=== PATIENT | male | born 1935 | race Caucasian/White ===

== ENCOUNTER 2022-04-11 12:58 | Outpatient (CLI) | payer MEDICARE, SELFPAY ==
--- NOTE | ~2022-04-11 | PE_ITS ---
EXAMINATION: PET_PETPSMAST_PT DATE: 04/11/2022 15:44 INDICATION: Malignant tumor of the prostate TECHNIQUE: 9.779 mCi of pipflufolastat F-18 (18-F-DCFPyL) was administered i.v. Low dose computed to mography (CT) images were acquired from the base of the brain to the base of the brain to the proxima l thighs for attenuation correction and anatomic localization. Positron emission tomography (PET) kathia ges were acquired in the same distribution beginning 111 minutes after injection. Images including fu sed PET/CT images were reconstructed in axial, coronal, and sagittal planes. Automated exposure contr ol technique was employed. The dose-length product was 985.80mGy-cm. COMPARISON: None FINDINGS: Head/neck: Typical pattern of symmetric physiologic increased activity in the lacrimal, parotid and submandibula r glands as well as along the mucosa of the oropharynx and nasopharynx. No pathologically enlarged ce rvical lymphadenopathy or suspicious foci of increased uptake in the visualized head or neck. Chest: 16 x 10 mm pleural-based nodule in the superior segment of the right lower lobe which is without abno rmal increased PSMA activity. Bilateral calcified pleural plaques in the dependent bilateral lower christopher ng zones and along the diaphragm which suggests prior asbestos exposure. Linear band of discoid atele ctasis/scarring in the posterior lingula. A couple small nodules oriented along the right minor fissu re, the larger measuring 6 x 3 mm most likely representing intrafissural lymph nodes which are withou t PSMA activity. Heart size is normal. Atherosclerotic coronary artery calcification and aortic valve calcification. No pericardial or pleural effusion. Thoracic aorta is normal in caliber. No pathologi julisa enlarged abdominal or pelvic lymphadenopathy. Abdomen/pelvis/proximal thighs: Physiologic renal accumulation and excretion of activity in the kidneys, bladder and along portions o f ureters. Normal degree and slightly heterogenous pattern of increased uptake throughout the liver a nd spleen without radiologic correlate or dominant PSMA avid lesion. The gallbladder, pancreas and bi lateral adrenal glands are normal. Moderate uptake scattered throughout the bowels with typical duode nal predominance and without radiologic correlate, also likely physiologic. There is moderate colonic diverticulosis with a sigmoid predominance. There is no adjacent inflammatory change to suggest div erticulitis. Normal appendix. Small fat-containing bilateral inguinal hernias. Prostatomegaly measuri ng 5.5 x 3.7 cm. No other abnormal foci of increased uptake or pathologically enlarged lymphadenopath y in the abdomen, pelvis or proximal thighs. Musculoskeletal: Severe lower cervical, mild thoracic and moderate lumbar spondylosis. No suspicious lytic, blastic or PSMA avid bone lesions identified. IMPRESSION: 1. Prostatomegaly. No abnormal PSMA abdomen lesions identified to suggest metastatic disease. 2. Indeterminate 1.6 x 1.0 cm pleural-based nodule in the right lower lobe. Recommend correlation wit h any prior outside imaging. Differential would include infectious/inflammatory nodules, primary simon gnancy or round atelectasis related to bilateral calcified pleural plaques suggestive of peristalsis exposure. Assessment of the local architectural is limited due to motion artifact. If prior outside i maging is unavailable would recommend dedicated chest CT at full inspiration. Reviewed, dictated and finalized at location A. IMPRESSION: 1. Prostatomegaly. No abnormal PSMA abdomen lesions identified to suggest metas tatic disease. 2. Indeterminate 1.6 x 1.0 cm pleural-based nodule in the right lower lobe. Rec ommend correlation with any prior outside imaging. Differential would include i
== END 2022-04-11 12:59 | disposition home or self-care (01) ==
PROVIDERS: PCP Internal Medicine; Visit Provider Urology
DX: Z03.89 Encounter for observation for other suspected diseases and conditions ruled out (principal); C61 Malignant neoplasm of prostate
CPT/HCPCS: 78815; A9595

== ENCOUNTER 2023-06-13 12:06 | Outpatient (CLI) | payer MEDICARE, SELFPAY ==
--- NOTE | 2023-06-13 14:30 | NEURO_ITS ---
Impression: # Complains of numbness of hands, right more than left. # Severe Carpal Tunnel Syndrome, right more than left. # No ulnar neuropathy. # Needle/EMG mildly neurogenic in bilateral APB. Nerve Conduction Studies Anti Sensory Summary Table Stim Site NR Peak (ms) P-T Amp (?V) Site1 Site2 Delta-P (ms) Dist (cm) Leonardo (m/s) Left Median Anti Sensory (2-3nd Digit) Wrist 4.4 30.7 Wrist 2-3nd Digit 4.4 14.0 32 Wrist 4.7 14.5 Wrist 2-3nd Digit 4.4 14.0 32 Right Median Anti Sensory (2-3nd Digit) Wrist 8.4 29.0 Wrist 2-3nd Digit 8.4 14.0 17 Wrist 7.5 12.1 Wrist 2-3nd Digit 8.4 14.0 17 Left Radial Anti Sensory (Base 1st Digit) Wrist 2.4 24.3 Wrist Base 1st Digit 2.4 0.0 Right Radial Anti Sensory (Base 1st Digit) Wrist 2.3 18.8 Wrist Base 1st Digit 2.3 0.0 Left Ulnar Anti Sensory (5th Digit) Wrist 3.3 48.6 Wrist 5th Digit 3.3 14.0 42 Right Ulnar Anti Sensory (5th Digit) Wrist 2.8 36.3 Wrist 5th Digit 2.8 14.0 50 Motor Summary Table Stim Site NR Onset (ms) O-P Amp (mV) Site1 Site2 Delta-0 (ms) Dist (cm) Leonardo (m/s) Left Median Motor (Abd Poll Brev) Wrist 5.1 1.1 Elbow Wrist 6.1 32.0 52 Elbow 11.2 0.9 Right Median Motor (Abd Poll Brev) Wrist 9.0 2.3 Elbow Wrist 6.5 34.0 52 Elbow 15.5 1.4 Left Ulnar Motor (Abd Dig Minimi) Wrist 2.7 3.6 A Elbow Wrist 5.9 33.0 56 A Elbow 8.6 3.2 Right Ulnar Motor (Abd Dig Minimi) Wrist 2.3 4.4 A Elbow Wrist 5.7 33.0 58 A Elbow 8.0 3.2 F Wave Studies NR F-Lat (ms) L-R F-Lat (ms) Left Median (Mrkrs) (Abd Poll Brev) 32.89 6.26 Right Median (Mrkrs) (Abd Poll Brev) 39.14 6.26 Left Ulnar (Mrkrs) (Abd Dig Min) 32.39 1.06 Right Ulnar (Mrkrs) (Abd Dig Min) 31.33 1.06 EMG Side Muscle Nerve Root Ins Act Fibs Amp Dur Recrt Comment Right 1stDorInt Ulnar C8-T1 Nml Nml Nml Nml Nml Right Ext Indicis Radial (Post Int) C7-8 Nml Nml Nml Nml Nml Right Ext Digitorum Radial (Post Int) C7-8 Nml Nml Nml Nml Nml Right BrachioRad Radial C5-6 Nml Nml Nml Nml Nml Right PronatorTeres Median C6-7 Nml Nml Nml Nml Nml Right Abd Poll Brev Median C8-T1 Nml Nml Nml >12ms Reduced Left 1stDorInt Ulnar C8-T1 Nml Nml Nml Nml Nml Left Ext Indicis Radial (Post Int) C7-8 Nml Nml Nml Nml Nml Left Ext Digitorum Radial (Post Int) C7-8 Nml Nml Nml Nml Nml Left BrachioRad Radial C5-6 Nml Nml Nml Nml Nml Left PronatorTeres Median C6-7 Nml Nml Nml Nml Nml Left Abd Poll Brev Median C8-T1 Nml Nml Nml >12ms Reduced MTDD
== END 2023-06-13 12:07 | disposition home or self-care (01) ==
LOC: ANHNEURO 12:07
PROVIDERS: PCP Internal Medicine; Visit Provider Internal Medicine
DX: R20.0 Anesthesia of skin (principal); G56.03 Carpal tunnel syndrome, bilateral upper limbs
CPT/HCPCS: 95886; 95911

== ENCOUNTER 2023-07-31 01:11 | Day surgery (SDC) | payer MEDICARE, SELFPAY ==
[2023-07-23 15:06] VITALS: BMI 28.5
--- NOTE | 2023-07-23 15:21 | PC.NURSE ---
Report to the Outpatient Waiting Room, entrance under the green pavilion located off [facility], at time ___929____ on date __07/31/23 . Planned Procedure Time: ___1230 . Time changes happen often and if your time is changed the preop area will call you the afternoon before. - You and your visitor will be asked to self-screen and do not enter if you have any COVID symptoms. - A mask is optional within the hospital at this time. Patients may have clear liquids (water, carbonated beverages, clear teas, apple juice) until 3 hours prior to surgery (0930 AM) with a maximum of 20 ounces. - No food from midnight until time of surgery - Infants may have breast milk until 4 hours before surgery, infant formula 6 hours prior to surgery. - Children will be allowed to drink immediately following surgery. If applicable, please bring a bottle or sippy cup to assist with drinking. Juice, water, soda, and popsicles are readily available. For infants on formula, please bring formula the day of surgery. Pacifiers are allowed. Take the following medications with a SIP of water the morning of surgery: NONE DO NOT STOP ANY OF YOUR OTHER PRESCRIPTION MEDICATIONS PRIOR TO SURGERY ?EXCEPT THE FOLLOWING Medications to discontinue per physician NONE Date to take last dose Please no make-up, nail ukrainian, hairspray, perfume, deodorant, or body powder the day of surgery. No jewelry (including any body piercings) or valuables the day of surgery, leave them at home. Please take a shower or bath the night before, or the morning of, surgery with an antibacterial soap. Wear comfortable, loose fitting clothing. Children are encouraged to wear pajamas. - Jewelry must be removed prior to entering the operating room. Rings and piercings that are not removed may be cut off. - The hospital will not accept responsibility for valuables. - Please leave all valuables, including medications, at home the day of surgery. If you are going home after surgery, a licensed commercial collections driver must drive you home. - NO public transportation without another adult if you receive anesthesia. - We recommend that an adult stay with you for 24 hours following discharge. - We also recommend that you do not drive, make important decision, drink alcoholic beverages, or take any drugs that were not prescribed by your health care provider for at least 24 hours after your discharge time. For Pediatric surgeries, we recommend two adults accompany the child home. Follow any additional instructions given to you from your surgeon. If you or anyone in your household have experienced Covid symptoms in the past week, please notify your surgeon or the nurse liaison at the phone number below for possible testing. Telephone instructions given to ____PT and asked if any additional questions and then verbalized understanding. Patient advised to call surgeon office or pre surgery nurse liaison [phone] if any additional questions.
--- NOTE | 2023-07-26 09:17 | P.HP_ITS ---
H&P: HPI History of Present Illness Date/Time: 07/26/23 09:17 Chief Complaint: Right carpal tunnel. Narrative: Patient is as had numbness and tingling in the right hand for years now it is getting progressively worse. She he has failed conservative treatment splinting anti-inflammatory medication and time. His EMG shows carpal tunnel syndrome. Review of Systems Musculoskeletal: Musculoskeletal: Reports arthralgias and Reports joint swelling PMFSH Past Medical History Medical History (Updated 07/02/23 @ 08:22 by Freddie Cheema MD) Hyperlipidemia Prostate cancer Surgical History Surgical History (Updated 07/02/23 @ 08:15 by Ines Wilson [facility]) History of appendectomy Family History Family History (Updated 07/02/23 @ 08:15 by Ines Wilson CMA) Father Diabetes mellitus Heart disease Social History Social History (Updated 07/02/23 @ 08:17 by Ines Wilson CMA) Smoking status: Never smoker Second hand tobacco smoke exposure: No Alcohol intake: never Substance use: never Substance use type: does not use Lack of Transportation: No Lack of Food: Never True Current Housing: I Have Housing Concerned About Future Housing: No Difficulty Paying Gas/Electric Bills: No Difficulty Paying for Meds: No Currently Unemployed: No Education: High School Diploma/GED Difficulty w/ Childcare or Family Care: No Living arrangements: with family Occupation/Education: retired Spiritual care concerns: No Meds Home Medications and Allergies Home Medications Medication Instructions Recorded Confirmed Type leuprolide acetate (6 month) 45 mg 45 mg subcut [id number] 07/02/23 07/23/23 History (6 month) subcutaneous syringe ([employer]) simvastatin 40 mg tablet 40 mg PO DAILY 07/02/23 07/23/23 History tamsulosin 0.4 mg capsule 0.4 mg PO DAILY 07/02/23 07/23/23 History Allergies Allergy/AdvReac Type Severity Reaction Status Date / Time No Known Allergies Allergy Verified 07/23/23 15:06 Exam Narrative: Hip patient is wasting of the thumb the thenar musculature. He has got a it markedly increased 2 point discrimination. He has numbness in the median nerve distribution. Eyes: General: appearance normal, both eyes and all related structures Neck: Neck: supple Resp: Effort & Inspection: normal respiratory effort Cardio: Rate: regular rate Rhythm: regular rhythm Assessment and Plan Assessment and plan (1) Carpal tunnel syndrome on both sides: Code(s): G56.03 - Carpal tunnel syndrome, bilateral upper limbs Status: Acute Assessment and Plan: Patient presents carpal tunnel right to left. He would like to have his right relief 1 release today. He has failed conservative treatment. We he is still discussed surgery with him risks benefits limitations and alternatives in detail. Because of his advanced age and the severe changes on his EMG, I told him there are many people do not get full function back. He understands this will proceed per his request.
--- NOTE | 2023-07-31 06:51 | WPDHPUPDATE1 ---
History and Physical Update Update Date/Time: 07/31/23 06:51 History and Physical has been reviewed, including an updated exam of the patient. There are NO changes in the patient's condition. Risks, benefits, and alternatives have been discussed and questions answered. Patient agrees to proceed with procedure.
--- NOTE | 2023-07-31 08:40 | WPDANESEPPF ---
Anes - Initial Pre Proc Eval Procedure: Operation Date: 07/31/23 12:30 Proposed Procedures p Right Carpal Tunnel Release - Freddie Cheema MD Date/Time: 07/31/23 08:40 Surgeon: Freddie Cheema MD Pre Op Diagnosis: Right Carpal Tunnel Synd Patient Data Age: 88 Gender: M Height: 1.8 m Weight: 92.72 kg Allergies Allergy/AdvReac Type Severity Reaction Status Date / Time No Known Allergies Allergy Verified 07/31/23 09:58 Home Medications Medication Instructions Recorded Confirmed Type leuprolide acetate (6 month) 45 mg 45 mg subcut [id number] 07/02/23 07/23/23 History (6 month) subcutaneous syringe ([employer]) simvastatin 40 mg tablet 40 mg PO DAILY 07/02/23 07/23/23 History tamsulosin 0.4 mg capsule 0.4 mg PO DAILY 07/02/23 07/23/23 History Patient hx anesthesia problems: none Family hx anesthesia problems: none Results Review: All pre-operative results and documents have been reviewed as part of the pre-operative evaluation. [facility] Past Medical History Medical History (Updated 07/02/23 @ 08:22 by Freddie Cheema MD) Hyperlipidemia Prostate cancer Surgical History Surgical History (Updated 07/02/23 @ 08:15 by Ines Wilson CMA) History of appendectomy Family History Family History (Updated 07/02/23 @ 08:15 by Ines Wilson CMA) Father Diabetes mellitus Heart disease Social History Social History (Updated 07/02/23 @ 08:17 by Ines Wilson CMA) Smoking status: Never smoker Second hand tobacco smoke exposure: No Alcohol intake: never Substance use: never Substance use type: does not use Lack of Transportation: No Lack of Food: Never True Current Housing: I Have Housing Concerned About Future Housing: No Difficulty Paying Gas/Electric Bills: No Difficulty Paying for Meds: No Currently Unemployed: No Education: High School Diploma/GED Difficulty w/ Childcare or Family Care: No Living arrangements: with family Occupation/Education: retired Spiritual care concerns: No Anes - Eval Final PreProcedure Day of Procedure 07/31/23 08:40 Patient weight: overweight Heart: regular rate and rhythm Lungs: clear to auscultation Airway: Mallampati scale class II Neurological: alert and oriented Last oral intake: >/= 8 hours ASA classification: III Emergent: no Anesthetic plan: proceed Anesthesia type and monitoring: general GIVS and standard monitoring Results Review: All pre-operative results and documents have been reviewed as part of the pre-operative evaluation. Informed Consent: The patient's anesthetic plan and its attendant risks and benefits were discussed with the patient/family/POA. Questions were solicited and answers provided to the satisfaction of the patient/family/POA.
[2023-07-31 10:06] VITALS: BP 137/66; PULSE 87; RESP 16; TEMP 36.6; O2SAT 98
[2023-07-31] MEDS: ACETAMINOPHEN 500 MG TABLET 1000 MG PO (11:15)
[2023-07-31] MEDS: LACTATED RINGERS 1,000 ML 30 ML IV CONT (11:15)
[2023-07-31] MEDS: KETOROLAC 15 MG/ML VIAL (*BKC) IV PUSH (11:18)
--- NOTE | 2023-07-31 12:40 | SUR.PREOP ---
Patient and upset about wait time. They believe they were told surgery was to be at 1030. I told them when they got here they were early and the OR was running 1/2 behind. I didn't realize at that time just how early they thought he was going to surgery. Attempted to help them understand but they are firm in believing they were told he would go to surgery at 1030 ( his arrival time).
[2023-07-31] MEDS: ceFAZolin 2 GM/D5W 50 ML 2 GM/50 ML BAG IVPB (13:23)
--- NOTE | 2023-07-31 13:52 | W.PM.PROC2 ---
Procedure Note - Detailed Date of Procedure 07/31/23 Pre-op Diagnosis Right Carpal Tunnel Syndrome Post-op Diagnosis Same Procedure Performed RIGHT carpal tunnel release Surgeon Freddie Cheema MD Anesthesia MAC Description of Procedure An anestheitc was administered. After sterile prep and drape, I injected the area of intended incision with 10ml of 1% lidocaine. A longitudinal incision was made in line with the ulnar boarder of the third finger. Dissection carried down to the fascia, the fascia split and the carpal ligament identified. The carpal ligament was released and the flexor retinaculum was released as well. The nerve was noted to be red purple in color and in continuity. The wound was irrigated, hemostasis was obtained and closed with 3-0 prolene. Estimated Blood Loss 2 Drains No Packing No Pathology None sent Complications No immediate complications Condition Stable Disposition Same day [facility] Billing Surgery - Charge Forward: Surgery Billing (RIGHT CARPAL TUNNEL [id number])
[2023-07-31 13:57] VITALS: BP 109/53; PULSE 68; RESP 16; O2SAT 93
[2023-07-31 14:25] VITALS: BP 148/68; PULSE 63
== END 2023-07-31 14:47 | disposition home or self-care (01) ==
PROVIDERS: PCP Internal Medicine; Visit Provider Orthopaedic Surgery
PROC: (CPT 64721; principal; 2023-07-31 12:30)
DX: G56.01 Carpal tunnel syndrome, right upper limb (principal); E78.5 Hyperlipidemia, unspecified; Z85.46 Personal history of malignant neoplasm of prostate
CPT/HCPCS: 64721; A9270; J0690; J1885; J2704; J7120

== ENCOUNTER 2023-09-06 10:20 | Outpatient (CLI) | payer MEDICARE, SELFPAY ==
--- NOTE | 2023-09-06 10:33 | ECG_ITS ---
Measurements Intervals [place] Rate: 62 P: 64 GA: 245 QRS: 16 QRSD: 106 T: 66 QT: 381 QTc: 388 Interpretive Statements SINUS RHYTHM WITH FIRST DEGREE AV BLOCK NO PREVIOUS ECG AVAILABLE FOR COMPARISON Electronically Signed On 09-06-2023 14:04:33 CAGE MANAGER by Nicanor Booker M.D.
== END 2023-09-06 10:21 | disposition home or self-care (01) ==
LOC: ANHSURGERY 10:25
PROVIDERS: PCP Internal Medicine; Visit Provider Orthopaedic Surgery
DX: Z01.818 Encounter for other preprocedural examination (principal); I44.0 Atrioventricular block, first degree; E78.00 Pure hypercholesterolemia, unspecified
CPT/HCPCS: 93005

== ENCOUNTER 2023-09-10 01:27 | Day surgery (SDC) | payer MEDICARE, SELFPAY ==
--- NOTE | 2023-08-27 15:27 | PC.NURSE ---
Report to the Outpatient Waiting Room, entrance under the green pavilion located off [facility], at time __0600 on date _09/10/23 . Planned Procedure Time: _0730 . Time changes happen often and if your time is changed the preop area will call you the afternoon before. - You and your visitor will be asked to self-screen and do not enter if you have any COVID symptoms. - A mask is optional within the hospital at this time. Patients may have clear liquids (water, carbonated beverages, clear teas, apple juice) until 3 hours prior to surgery( 4:30 AM ) with a maximum of 20 ounces. - No food from midnight until time of surgery - Infants may have breast milk until 4 hours before surgery, infant formula 6 hours prior to surgery. - Children will be allowed to drink immediately following surgery. If applicable, please bring a bottle or sippy cup to assist with drinking. Juice, water, soda, and popsicles are readily available. For infants on formula, please bring formula the day of surgery. Pacifiers are allowed. Take the following medications with a SIP of water the morning of surgery: _NONE DO NOT STOP ANY OF YOUR OTHER PRESCRIPTION MEDICATIONS PRIOR TO SURGERY ?EXCEPT THE FOLLOWING Medications to discontinue per physician ALL VITAMINS AND SUPPLEMENTS 3 DAYS PRE OP .LAST DOSE 09/06/23 Please no make-up, nail turkish, hairspray, perfume, deodorant, or body powder the day of surgery. No jewelry (including any body piercings) or valuables the day of surgery, leave them at home. Please take a shower or bath the night before, or the morning of, surgery with an antibacterial soap. Wear comfortable, loose fitting clothing. Children are encouraged to wear pajamas. - Jewelry must be removed prior to entering the operating room. Rings and piercings that are not removed may be cut off. - The hospital will not accept responsibility for valuables. - Please leave all valuables, including medications, at home the day of surgery. If you are going home after surgery, a licensed otr tanker truck driver must drive you home. - NO public transportation without another adult if you receive anesthesia. - We recommend that an adult stay with you for 24 hours following discharge. - We also recommend that you do not drive, make important decision, drink alcoholic beverages, or take any drugs that were not prescribed by your health care provider for at least 24 hours after your discharge time. Follow any additional instructions given to you from your surgeon. If you or anyone in your household have experienced Covid symptoms in the past week, please notify your surgeon or the nurse liaison at the phone number below for possible testing. Telephone instructions given to _PATIENT and asked if any additional questions and then verbalized understanding. Patient advised to call surgeon office or pre surgery nurse liaison [phone] if any additional questions.
[2023-08-27 15:34] VITALS: BMI 27.8
--- NOTE | 2023-09-06 07:26 | PM.IMHP ---
H&P: HPI History of Present Illness Date/Time: 09/06/23 07:26 Chief Complaint: Numbness and tingling right hand from carpal tunnel syndrome. Narrative: Patient presents for carpal tunnel release right. Review of Systems Musculoskeletal: Musculoskeletal: Reports arthralgias and Reports joint swelling PMF Past Medical History Medical History Hyperlipidemia Prostate cancer Surgical History Surgical History (Updated 08/14/23 @ 13:52 by Ines Wilson CMA) History of appendectomy History of carpal tunnel surgery of right wrist 07/31/23 Family History Family History Father Diabetes mellitus Heart disease Social History Social History Smoking status: Never smoker Second hand tobacco smoke exposure: No Alcohol intake: never Substance use: never Substance use type: does not use Do You Feel Safe in your Home?: Yes Lack of Transportation: No Lack of Food: Never True Current Housing: I Have Housing Concerned About Future Housing: No Difficulty Paying Gas/Electric Bills: No Difficulty Paying for Meds: No Currently Unemployed: No Education: High School Diploma/GED Difficulty w/ Childcare or Family Care: No Living arrangements: with family Occupation/Education: retired Spiritual care concerns: No Meds Home Medications and Allergies Home Medications Medication Instructions Recorded Confirmed Type leuprolide acetate (6 month) 45 mg 45 mg subcut [id number] 07/02/23 08/27/23 History (6 month) subcutaneous syringe ([place]) simvastatin 40 mg tablet 40 mg PO DAILY 07/02/23 08/27/23 History tamsulosin 0.4 mg capsule 0.4 mg PO DAILY 07/02/23 08/27/23 History cholecalciferol (vitamin D3) 25 25 mcg PO DAILY 08/27/23 08/27/23 History mcg (1,000 unit) tablet cyanocobalamin (vitamin B-12) 500 500 mcg PO DAILY 08/27/23 08/27/23 History mcg tablet omega-3 fatty acids 3,000 mg PO DAILY DAILY 08/27/23 08/27/23 History pyridoxine (vitamin B6) 100 mg 100 mg PO DAILY 08/27/23 08/27/23 History tablet Allergies Allergy/AdvReac Type Severity Reaction Status Date / Time naproxen AdvReac Dizziness Verified 08/27/23 15:13 Exam Narrative: Patient is numbness and tingling right hand. He has a positive Phalen's and carpal tunnel compression test. He has increased 2 point discrimination. Is difficulty picking up coins. Eyes: General: appearance normal, both eyes and all related structures Neck: Neck: supple Resp: Effort & Inspection: normal respiratory effort Cardio: Rate: regular rate Rhythm: regular rhythm Assessment and Plan Assessment and plan (1) Carpal tunnel syndrome on both sides: Code(s): G56.03 - Carpal tunnel syndrome, bilateral upper limbs Status: Acute Assessment and Plan: Patient has carpal tunnel syndrome right left hand. He would like to begin with the right hand. He has failed conservative treatment like to proceed with release. I discussed risks benefits limitations and alternatives in detail. He understands he may not get complete sensation back. Will proceed per his request. For right carpal tunnel syndrome release
--- NOTE | 2023-09-10 06:48 | WPDHPUPDATE1 ---
History and Physical Update Update Date/Time: 09/10/23 06:48 History and Physical has been reviewed, including an updated exam of the patient. There are NO changes in the patient's condition. Risks, benefits, and alternatives have been discussed and questions answered. Patient agrees to proceed with procedure.
[2023-09-10] MEDS: ACETAMINOPHEN 500 MG TABLET 1000 MG PO (08:21)
[2023-09-10 08:25] VITALS: BP 135/59; PULSE 74; RESP 16; TEMP 36.2; O2SAT 97
--- NOTE | 2023-09-10 08:53 | WPDANESEPPF ---
Anes - Initial Pre Proc Eval Procedure: Operation Date: 09/10/23 10:00 Proposed Procedures p Left Carpal Tunnel Release - Freddie Cheema MD Date/Time: 09/10/23 08:53 Surgeon: Freddie Cheema MD Pre Op Diagnosis: left carpal tunnel syndrome Patient Data Age: 88 Gender: M Height: 1.8 m Weight: 90.75 kg Last Vital Signs Temp 36.2 C L 09/10/23 08:25 Pulse 74 09/10/23 08:25 Resp 16 09/10/23 08:25 BP 135/59 L 09/10/23 08:25 Pulse Ox 97 09/10/23 08:25 O2 Del Method Room Air 09/10/23 08:25 Allergies Allergy/AdvReac Type Severity Reaction Status Date / Time naproxen AdvReac Dizziness Verified 08/27/23 15:13 Home Medications Medication Instructions Recorded Confirmed Type leuprolide acetate (6 month) 45 mg 45 mg subcut [id number] 07/02/23 09/10/23 History (6 month) subcutaneous syringe ([employer]) simvastatin 40 mg tablet 40 mg PO DAILY 07/02/23 09/10/23 History tamsulosin 0.4 mg capsule 0.4 mg PO DAILY 07/02/23 09/10/23 History cholecalciferol (vitamin D3) 25 25 mcg PO DAILY 08/27/23 09/10/23 History mcg (1,000 unit) tablet cyanocobalamin (vitamin B-12) 500 500 mcg PO DAILY 08/27/23 09/10/23 History mcg tablet omega-3 fatty acids 3,000 mg PO DAILY DAILY 08/27/23 09/10/23 History pyridoxine (vitamin B6) 100 mg 100 mg PO DAILY 08/27/23 09/10/23 History tablet Patient hx anesthesia problems: none Family hx anesthesia problems: none Results Review: All pre-operative results and documents have been reviewed as part of the pre-operative evaluation. [facility] Past Medical History Medical History Hyperlipidemia Prostate cancer Surgical History Surgical History History of appendectomy History of carpal tunnel surgery of right wrist 07/31/23 Family History Family History Father Diabetes mellitus Heart disease Social History Social History Smoking status: Never smoker Second hand tobacco smoke exposure: No Alcohol intake: never Substance use: never Substance use type: does not use Do You Feel Safe in your Home?: Yes Lack of Transportation: No Lack of Food: Never True Current Housing: I Have Housing Concerned About Future Housing: No Difficulty Paying Gas/Electric Bills: No Difficulty Paying for Meds: No Currently Unemployed: No Education: High School Diploma/GED Difficulty w/ Childcare or Family Care: No Living arrangements: with family Occupation/Education: retired Spiritual care concerns: No Anes - Eval Final PreProcedure Day of Procedure 09/10/23 08:53 Patient weight: overweight Heart: regular rate and rhythm Lungs: clear to auscultation Airway: Mallampati scale class II Neurological: alert and oriented Last oral intake: >/= 8 hours ASA classification: III Emergent: no Anesthetic plan: proceed Anesthesia type and monitoring: general GIVS and standard monitoring Results Review: All pre-operative results and documents have been reviewed as part of the pre-operative evaluation. Informed Consent: The patient's anesthetic plan and its attendant risks and benefits were discussed with the patient/family/POA. Questions were solicited and answers provided to the satisfaction of the patient/family/POA.
[2023-09-10] MEDS: LACTATED RINGERS 1,000 ML 30 ML IV CONT (10:00)
[2023-09-10] MEDS: ceFAZolin 2 GM/D5W 50 ML 2 GM/50 ML BAG IVPB (10:04)
[2023-09-10] MEDS: LIDOCAINE HCL 1% LOCAL INJ 20 ML VIAL 10 ML INFILTRATE (10:22)
--- NOTE | 2023-09-10 10:25 | P.OP_ITS ---
Procedure Note - Detailed Date of Procedure 09/10/23 Pre-op Diagnosis LEFT carpal tunnel syndrome Post-op Diagnosis Same Procedure Performed LEFT carpal tunnel release Surgeon Freddie Cheema MD Anesthesia MAC Description of Procedure A general anesthetic was administered. After sterile prep and drape, I injected the area of intended incision with 10ml of 1% lidocaine. A longitudinal incision was made in line with the ulnar boarder of the third finger. Dissection carried down to the fascia, the fascia split and the carpal ligament identified. The carpal ligament was released and the flexor retinaculum was released as well. The nerve was noted to be red purple in color and in continuity. The wound was irrigated, hemostasis was obtained and closed with 3- 0 prolene. Estimated Blood Loss 5 Drains No Packing No Pathology None sent Complications No immediate complications Condition Stable Disposition Same day [facility] Billing Surgery - Charge Forward: Surgery Billing (31541 Carpal Tunnel Left)
[2023-09-10 10:35] VITALS: BP 93/43; PULSE 55; RESP 12; O2SAT 95
[2023-09-10 11:05] VITALS: BP 136/51; PULSE 53; RESP 12; O2SAT 95
== END 2023-09-10 11:20 | disposition home or self-care (01) ==
PROVIDERS: PCP Internal Medicine; Visit Provider Orthopaedic Surgery
PROC: (CPT 64721; principal; 2023-09-10 10:00)
DX: G56.02 Carpal tunnel syndrome, left upper limb (principal); E78.5 Hyperlipidemia, unspecified; Z98.890 Other specified postprocedural states; Z85.46 Personal history of malignant neoplasm of prostate; Z82.49 Family history of ischemic heart disease and other diseases of the circulatory system
CPT/HCPCS: 64721; 93005; A9270; J0690; J1100; J2405; J2704; J3010; J7120; L3908

== ENCOUNTER 2024-02-07 21:12 | Observation (INO) | payer MEDICARE, SELFPAY ==
--- NOTE | ~2024-02-07 | MR_ITS ---
EXAMINATION: MR MRCP wo/w con/w 3D wo ind DATE: 02/08/2024 13:23 INDICATION: Acute cholecystitis. TECHNIQUE: Magnetic resonance imaging (MRI) of the abdomen was performed without and with 18 mL Multi Haramn intravenous contrast. Sequences included coronal T2-weighted FS FSE, coronal T2-weighted FSE, a xial T1-weighted LAVA, coronal FS FIESTA, axial dual-echo T1-weighted SPGR, coronal lava-FLEX, sagitt al T2-weighted FSE, axial T2-weighted FSE, and axial DWI. Thick-slab T2-weighted FSE images were obta ined for magnetic resonance cholangiopancreatography (MRCP). Maximum intensity projection 3-D reconst ructions of the volumetric data were created by the technologist. Postcontrast sequences included cor onal LAVA-flex and time course of axial T1-weighted LAVA. COMPARISON: CT abdomen and pelvis 02/06/2024 FINDINGS: ABDOMEN MRI: There is diffuse hepatic steatosis. The gallbladder is distended and contains gallstones . Gallbladder wall thickening is noted. The pancreas, spleen, adrenal glands, and right kidney are no rmal. There is a 6 mm cyst in left kidney. There is a small sliding hiatal hernia. There are no dilat ed loops of bowel. There are no pathologically enlarged lymph nodes. There is no free intraperitoneal fluid. ABDOMEN MRCP: The common duct is normal and measures 6 mm. No choledocholithiasis. IMPRESSION: 1. Acute cholecystitis. Reviewed, dictated and finalized at location A. IMPRESSION: 1. Acute cholecystitis.
--- NOTE | ~2024-02-07 | XR_ITS ---
Clinical Indication: Crackles PA and lateral views of the chest: Comparison: None Findings: There is linear scarring or atelectasis at the right lung base. Possible minimal central co ngestive change. Lungs are otherwise clear. Cardiomediastinal silhouette is within normal limits. Leo moises and soft tissues are unremarkable. Impression: Linear scarring or atelectasis right lung base. Possible minimal central congestive change. Reviewed, dictated and finalized at location . Impression: Linear scarring or atelectasis right lung base. Possible minimal central congestive change.
[2024-02-07 18:30] VITALS: BMI 27.8
--- NOTE | 2024-02-07 18:46 | PC.NURSE ---
This patient, Yves Payton, was admitted to [facility] Surg Room 313-01. Patient/family oriented to hospital policies and general routines including ID bracelet, bed and alarms, visiting hours, pain management, procedures, bathroom and other care routines, personal items, smoking policy, room service/diet, and visiting hours. Information on how to activate the Rapid Response Team has been discussed. Patient/Family are encouraged to report perceived risks to care and to ask questions if they do not understand what they are told or what they should do.
--- NOTE | 2024-02-07 19:37 | PM.IMHP ---
H&P: HPI History of Present Illness Date/Time: 02/07/24 19:37 Chief Complaint: Abdominal Pain Narrative: 88 y/o M presents here with abdominal pain with PMH of HLD, chronic back pain, skin cancer (s/p excision), eczema, and prostate cancer (s/p radiation and eligard [id number]). The patient presents here from [place] for abdominal pain. Reports onset of acute diffuse abdominal pain yesterday postprandial after a barbecue around 2 pm. He describes the pain as diffuse initially more so right sided later in course, nonradiating, constant, no aggravating factors, and alleviated by pain medication. Pain accompanied by nausea, fever (102F yesterday), lack of appetite, and loose stools. Has had 3 BMs in the last 24 hours - one normal in consistency and two that were loose. Denies blood or dark tarry stools. Denies associated vomiting, chills, body aches. Initially sought care at [place] in [place]. There he was given Zosyn, pain medication, Protonix, and IV fluids. Transferred here to [place] for General Surgery consultation and possible cholecystectomy. VS upon transfer to [place]: ED workup showed: WBC 13.7, hemoglobin 13.4, sodium 134, glucose 117, creatinine 1.14 and GFR >60, ALT 428, AST 620, total bilirubin 5.4, and lipase 211. UA not consistent with UTI. TSH 1.4. CT of the abdomen/pelvis spacious for acute cholecystitis. Abdominal ultrasound showed cholelithiasis and kenney cholecystic free fluid, negative sonographic Blair sign. 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 Carpal tunnel syndrome on both sides Chronic back pain Eczema Hyperlipidemia Prostate cancer s/p radiation and [id number] Eligard SCC (squamous cell carcinoma) s/p excision Surgical History Surgical History History of appendectomy History of bilateral cataract extraction History of carpal tunnel surgery of left wrist 09/10/23 History of carpal tunnel surgery of right wrist 07/31/23 History of left inguinal hernia repair Family History Family History Father Diabetes mellitus Heart disease Social History Social History Smoking status: Never smoker Second hand tobacco smoke exposure: No Alcohol intake: never Substance use: never Substance use type: does not use Do You Feel Safe in your Home?: Yes Lack of Transportation: No Lack of Food: Never True Current Housing: I Have Housing Concerned About Future Housing: No Difficulty Paying Gas/Electric Bills: No Difficulty Paying for Meds: No Currently Unemployed: No Education: High School Diploma/GED Difficulty w/ Childcare or Family Care: No Living arrangements: with family Occupation/Education: retired Spiritual care concerns: No Meds Home Medications and Allergies Home Medications Medication Instructions Recorded Confirmed Type simvastatin 40 mg tablet 40 mg PO DAILY 07/02/23 02/07/24 History tamsulosin 0.4 mg capsule 0.4 mg PO DAILY 07/02/23 02/07/24 History omega-3 fatty acids 3,000 mg PO DAILY DAILY 08/27/23 02/07/24 History multivit,Ca,min-iron 8 mg-folic 1 tablet PO DAILY 02/07/24 02/07/24 History acid 200 mcg-lycopene 600 mcg tablet ([employer]) Allergies Allergy/AdvReac Type Severity Reaction Status Date / Time naproxen AdvReac Dizziness Verified 09/25/23 09:37 Exam Narrative: Const: General: comfortable and no acute distress Other: , male, nontoxic appearance HENMT: Face/Nose/Sinus: Normal nares present Mouth: Yes moist mucous membranes Eyes: General: appearance normal, both eyes and all r
[2024-02-07 22:00] VITALS: BP 125/47; PULSE 70; RESP 15; TEMP 36.2; O2SAT 93
[2024-02-07] MEDS: SODIUM CHLORIDE 0.9% IV 1,000 ML 100 ML IV CONT (22:01)
[2024-02-07] MEDS: ACETAMINOPHEN 325 MG TABLET 650 MG PO (22:50)
[2024-02-07] MEDS: metroNIDAZOLE 500 MG/ISO 100ML 500 MG/100 ML BAG 100 MG IVPB (22:51)
[2024-02-08] MEDS: cefTRIAXone 2 GM/NS 100 ML 2 GM/100 ML BAG IVPB ×2 (00:14→22:43)
[2024-02-08] MEDS: metroNIDAZOLE 500 MG/ISO 100ML 500 MG/100 ML BAG 100 MG IVPB ×3 (05:24→20:38)
[2024-02-08 06:00] VITALS: BP 120/65; PULSE 58; RESP 15; TEMP 36.1; O2SAT 93
[2024-02-08 07:03] LABS: Basophils Percent Auto 0.4 % (0.2-1.2); Eosinophils Absolute Auto 0.4 K/mm3 (0-0.3); Eosinophils Percent Auto 3.9 % (0-4.4); Hematocrit 36.1 % (42.0-52.0); Hemoglobin 12.2 g/dL (14.0-18.0); Immature Granulocyte Absolute 0.03 K/mm3 (0.00-0.031); Immature Granulocyte Percent A 0.3 % (0-0.5); Lymphocytes Absolute Auto 1.52 K/mm3 (0.9-3.2); Lymphocytes Percent Auto 15.6 % (18.3-44.2); Mean Corpuscular HGB Conc 33.8 g/dl (32-36); Mean Corpuscular Hemoglobin 32.8 pg (26-34); Monocytes Percent Auto 10.6 % (2.6-8.5); Neutrophils Absolute Auto 6.7 K/mm3 (1.3-6.7); Neutrophils Percent Auto 69.2 % (45.5-73.1); Platelet Count Result 145 k/mm3 (150-375); Red Blood Count 3.72 M/mm3 (4.6-6.20); Red Cell Distribution Width 12.7 % (11.5-14.5); White Blood Count 9.7 K/mm3 (4.5-10.0)
[2024-02-08 07:27] LABS: Alanine Aminotransferase 265 U/L (6-50); Albumin Level 3.6 g/dL (3.5-5.1); Alkaline Phosphatase 210 U/L (38-126); Anion Gap 5 mmol/L (4-12); Aspartate Amino Transferase 247 U/L (17-59); Bilirubin,Total 4.3 mg/dL (0.2-1.3); Blood Urea Nitrogen 25 mg/dL (9-20); Calcium 8.7 mg/dL (8.4-10.2); Carbon Dioxide 26 mmol/L (22-30); Chloride 107 mmol/L (98-107); Estimated CRCL calculation 44 ml/min; Estimated Glomerular Filt Rate > 60; Glucose 106 mg/dL (65-110); Potassium 3.8 mmol/L (3.4-5.0); Sodium 138 mmol/L (137-145)
--- NOTE | 2024-02-08 08:00 | ECG_ITS ---
Test Date: 2024-02-08 07:36:15 Measurements Intervals [place] Rate: 58 P: 60 CT: 260 QRS: 31 QRSD: 105 T: 64 QT: 416 QTc: 409 Interpretive Statements SINUS BRADYCARDIA WITH FIRST DEGREE AV BLOCK BASELINE WANDER- I, II, V2 BORDERLINE ECG No previous ECG available for comparison Electronically Signed On 02-08-2024 08:28:10 CDT by Se Moreno D.O.
--- NOTE | 2024-02-08 08:13 | PM.IMPN ---
Progress Note: A&P Assessment and Plan (1) Cholecystitis, acute: Code(s): K81.0 - Acute cholecystitis Status: Acute Assessment and Plan: Choledocholithiasis vs Cholecystitis - CT abd/pelvis (done at [place]): Findings suspicious for acute cholecystitis. - US of abdomen (done at [place]): Cholelithiasis and pericholecystic free fluid. No positive sonographic Blair sign. In conjunction with the findings on CT of the abdomen pelvis performed same date, acute cholecystitis should be considered in the appropriate clinical setting. - started on Zosyn at [facility], will continue as ceftriaxone plus metronidazole. - antiemetics and pain medication PRN - general surgery consulted - GI consulted - MRCP ordered - NPO at midnight in case of need for surgical management - continue IV fluids Plan Transfer from [facility] ER. Patient here with right-sided abdominal pain. Imaging consistent with acute cholecystitis. Ultrasound negative for Blair sign. General surgery and GI consulted. MRCP ordered. NPO at midnight in case of need for surgical management tomorrow. Antiemetics and pain medications p.r.n. started on Zosyn at [facility], will continue as ceftriaxone plus metronidazole. Patient overall feeling improved. Home medications reviewed and resumed as appropriate. Diet: Heart healthy, NPO at midnight GI Prophylaxis: not currently indicated DVT Prophylaxis: SCDs Lines: peripheral Code Status: full code Time Spent With Patient Time with patient: 25 - 35 minutes Subjective Date/time seen: 02/08/24 08:13 Interval history: 88 y/o M presents here with abdominal pain with PMH of HLD, chronic back pain, skin cancer (s/p excision), eczema, and prostate cancer (s/p radiation and eligard [id number]). The patient presents here from [place] for abdominal pain. Reports onset of acute diffuse abdominal pain yesterday postprandial after a barbecue around 2 pm. He describes the pain as diffuse initially more so right sided later in course, nonradiating, constant, no aggravating factors, and alleviated by pain medication. Pain accompanied by nausea, fever (102F yesterday), lack of appetite, and loose stools. Has had 3 BMs in the last 24 hours - one normal in consistency and two that were loose. Denies blood or dark tarry stools. Denies associated vomiting, chills, body aches. Initially sought care at [facility] in [place]. There he was given Zosyn, pain medication, Protonix, and IV fluids. Transferred here to [place] for General Surgery consultation and possible cholecystectomy. VS upon transfer to [place]: ED workup showed: WBC 13.7, hemoglobin 13.4, sodium 134, glucose 117, creatinine 1.14 and GFR >60, ALT 428, AST 620, total bilirubin 5.4, and lipase 211. UA not consistent with UTI. TSH 1.4. CT of the abdomen/pelvis spacious for acute cholecystitis. Abdominal ultrasound showed cholelithiasis and kenney cholecystic free fluid, negative sonographic Blair sign. 02/07- GI consult was placed 02/06. MRCP is ordered.Pt is NPO this morning. Flagyl/ceftriaxone IV. MRCP planned to evaluate for presence of stone- If stone present, will need ERCP for removal. Pt is seen and examined- pleasant and calm- reports that pain is a lot better-no n/v/d. Review of Systems Review of Systems: All systems reviewed & are unremarkable except as noted in HPI and below Exam Narrative: Const: General: comfortable and no acute distress Other: , male, nontoxic appearance HENMT: Face/Nose/Sinus: Normal nares present Mouth: Yes moist mucous membranes Eyes: General: appearance normal, both eyes and all related structures Sclera: sclerae normal Pupils: Equal, round and reactive pupils present EOM: EOMs intact bilaterally Resp: Effort & Inspection: normal respiratory effort Other: crackles in bilateral bases. Cardio: Rate: regular rate Rhythm: regular rhythm Other: S1-S2 present without murmur, rub, ectopy
[2024-02-08] MEDS: TAMSULOSIN HCL 0.4 MG CAPSULE PO (09:29)
--- NOTE | 2024-02-08 09:42 | P.CONGI_ITS ---
I, Kaiser Solorzano MD, have provided a substantive portion of the care of this patient and discussed the patient with my Nurse Practitioner. I have reviewed any new relevant radiographic and laboratory results including medications. I agree with her documentation as noted below.?I personally performed the medical decision making and much of the history and exam for this encounter. briefly, he is here with new onset of upper abdominal pain, nausea, anorexia and fever. He went to [facility], found to have cholecystitis with bili 5, transaminases 400-600, started on iv abx and transferred here to get MRCP then decide if would need endoscopic intervention and surgical evaluation. MRCP just completed, normal bile duct size, no stone, + acute cholecystitis. Pain is resolved now, wonder if passed stone. Plan is interval cholecystectomy, iv abx. No need of ERCP at this time. Assessment and Plan Assessment and plan (1) Cholecystitis, acute: Code(s): K81.0 - Acute cholecystitis Status: Acute (2) Elevated LFTs: Code(s): R79.89 - Other specified abnormal findings of blood chemistry Status: Acute (3) Elevated lipase: Code(s): R74.8 - Abnormal levels of other serum enzymes Status: Acute Plan 1. Abdominal pain / Possible cholecystitis/elevated LFT's/elevated lipase: Onset of acute diffuse abdominal pain on 02/06/2024, more right-sided later in course, accompanied by nausea, fever, lack of appetite, loose stools. Pain severe initially, requiring morphine, resolved suddenly on 02/07/2024 CT and abdominal ultrasound suspicious for acute cholecystitis. Bilirubin on admission at [facility] 5.4, lipase 211 and WBC's 14. Labs today show WBC is 10, HGB 12, HCT 36, MCV 97, platelets 145. Total bilirubin 4.3, AST 247, ALT 265, and alkaline phosphatase 210.Awaiting MRCP today to evaluate for presence of stone. If stone present, will need ERCP for stone removal. If no stone, will defer to surgery for further management (antibiotics vs cholecystectomy). DDX: Choledocholithiasis vs Cholecystitis * MRCP planned to evaluate for presence of stone * If stone present, will need ERCP for removal * If no stone, will defer to surgery for further management Thank you very much for allowing me to share in the care of this very nice patient. This report may have been done utilizing a voice recognition system. Attempts have been made to correct errors. However, there may be uncorrected grammatical, spelling, and recognition errors present. GI Consult Note Consult date/time: 02/08/24 09:42 Reason for consult: Acute cholecystitis HPI: Yves Payton is a pleasant 88 year old male with a past medical surgical history of HLD, chronic back pain, appendectomy, left inguinal hernia repair, skin cancer (s/p excision), eczema, and prostate cancer (s/p radiation and eligard Q 6 Months) he presented to the ER room 02/07/2024 with complaints of abdominal pain. GI consulted for possible cholecystitis. He was accompanied by his Manpreet throughout the entire visit. Patient initially sought care at [facility] in [place]. There he was given Zosyn, pain medication, Protonix, and IV fluids. Transferred here to [place] for General Surgery consultation and possible cholecystectomy. Reports onset of acute diffuse abdominal pain on 02/06/2024 postprandial after a barbecue around 2 pm. He describes the pain as: Diffuse initially, more so right sided later in course, non radiating, no aggravating factors. I had severe pain, and even morphine with stuff until about 5 o'clock yesterday. It just quit all of a sudden. Pain accompanied by nausea, fever (102F on 02/06/2024), lack
--- NOTE | 2024-02-08 09:42 | WPDGICN ---
Assessment and Plan Assessment and plan (1) Cholecystitis, acute: Code(s): K81.0 - Acute cholecystitis Status: Acute (2) Elevated LFTs: Code(s): R79.89 - Other specified abnormal findings of blood chemistry Status: Acute (3) Elevated lipase: Code(s): R74.8 - Abnormal levels of other serum enzymes Status: Acute Plan 1. Abdominal pain / Possible cholecystitis/elevated LFT's/elevated lipase: Onset of acute diffuse abdominal pain on 02/06/2024, more right-sided later in course, accompanied by nausea, fever, lack of appetite, loose stools. Pain severe initially, requiring morphine, resolved suddenly on 02/07/2024 CT and abdominal ultrasound suspicious for acute cholecystitis. Bilirubin on admission at [facility] 5.4, lipase 211 and WBC's 14. Labs today show WBC is 10, HGB 12, HCT 36, MCV 97, platelets 145. Total bilirubin 4.3, AST 247, ALT 265, and alkaline phosphatase 210.Awaiting MRCP today to evaluate for presence of stone. If stone present, will need ERCP for stone removal. If no stone, will defer to surgery for further management (antibiotics vs cholecystectomy). DDX: Choledocholithiasis vs Cholecystitis MRCP planned to evaluate for presence of stone If stone present, will need ERCP for removal If no stone, will defer to surgery for further management Thank you very much for allowing me to share in the care of this very nice patient. This report may have been done utilizing a voice recognition system. Attempts have been made to correct errors. However, there may be uncorrected grammatical, spelling, and recognition errors present. GI Consult Note Consult date/time: 02/08/24 09:42 Reason for consult: Acute cholecystitis HPI: Yves Payton is a pleasant 88 year old male with a past medical surgical history of HLD, chronic back pain, appendectomy, left inguinal hernia repair, skin cancer (s/p excision), eczema, and prostate cancer (s/p radiation and eligard Q 6 Months) he presented to the ER room 02/07/2024 with complaints of abdominal pain. GI consulted for possible cholecystitis. He was accompanied by his Manpreet throughout the entire visit. Patient initially sought care at [facility] in [place]. There he was given Zosyn, pain medication, Protonix, and IV fluids. Transferred here to [place] for General Surgery consultation and possible cholecystectomy. Reports onset of acute diffuse abdominal pain on 02/06/2024 postprandial after a barbecue around 2 pm. He describes the pain as: Diffuse initially, more so right sided later in course, non radiating, no aggravating factors. I had severe pain, and even morphine with stuff until about 5 o'clock yesterday. It just quit all of a sudden. Pain accompanied by nausea, fever (102F on 02/06/2024), lack of appetite, and loose stools. Today he is only having mild discomfort in the abdomen but no pain. Has had 3 BMs in the last 24 hours - one normal in consistency and two that were loose, denies blood or dark tarry stools. Currently denies nausea, vomiting, dysphagia, reflux, regurgitation, or constipation. He denies any NSAID, aspirin, or anticoagulant use prior to admission. ENDOSCOPY HISTORY: EGD: No prior EGDs. COLONOSCOPY: Last colonoscopy approximately 4 years ago ([facility]) LABS AND STOOL STUDIES: Labs on admission at [facility] showed WBC is 14, HGB 13, total bilirubin 5.4, and lipase 211. Labs today show sodium 138, potassium 3.8, BUN 25, creatinine 1.10. WBC is 10, HGB 12, HCT 36, MCV 97, platelets 145. Total bilirubin 4.3, AST 247, ALT 265, and alkaline phosphatase 210. IMAGING: CT abd/pelvis (done at [facility] on 02/07/2024): Findings suspicious for acute cholecystitis. US of abdomen (done at [facility] on 02/07/2024): Cholelithiasis and pericholecystic free fluid. No positive sonographic Blair sign. In conjunction with the findings on CT of the abdomen pelvis. Review of Systems Constitutional: Constitutional: Reports as per HPI EN
[2024-02-08] MEDS: SODIUM CHLORIDE 0.9% IV 1,000 ML 100 ML IV CONT (09:45)
--- NOTE | 2024-02-08 11:51 | PM.CNGS ---
Assessment and Plan Assessment and plan (1) Cholecystitis, acute: Code(s): K81.0 - Acute cholecystitis Status: Acute Assessment and Plan: Exam much improved, await MRCP, continue antibiotics, will need interval cholecystectomy (2) Elevated LFTs: Code(s): R79.89 - Other specified abnormal findings of blood chemistry Status: Acute Assessment and Plan: likely choledocholithiasis, exam is benign at this time, await ERCP History of Present Illness Consult details Consult date: 02/08/24 Reason for consult: abdominal pain Requesting physician: Juan Cooper MD Narrative: The patient is a 88-year-old male presenting to the hospital complaining of severe upper abdominal pain. The patient reports the pain started Sunday night and has progressively worsened since that time. The patient reports associated nausea, anorexia, bloating. The patient also describes subjective fevers at home. The patient denies previous similar episodes. The patient actually seen at an outside emergency department and diagnosed with likely cholecystitis, choledocholithiasis. He was transferred here for further care. 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 Surgical History Surgical History History of appendectomy History of bilateral cataract extraction History of carpal tunnel surgery of left wrist 09/10/23 History of carpal tunnel surgery of right wrist 07/31/23 History of left inguinal hernia repair Family History Family History Father Diabetes mellitus Heart disease Social History Social History Smoking status: Never smoker Second hand tobacco smoke exposure: No Alcohol intake: never Substance use: never Substance use type: does not use Do You Feel Safe in your Home?: Yes Lack of Transportation: No Lack of Food: Never True Current Housing: I Have Housing Concerned About Future Housing: No Difficulty Paying Gas/Electric Bills: No Difficulty Paying for Meds: No Currently Unemployed: No Education: High School Diploma/GED Difficulty w/ Childcare or Family Care: No Living arrangements: with family Occupation/Education: retired Spiritual care concerns: No Meds Home Medications and Allergies Home Medications Medication Instructions Recorded Confirmed Type simvastatin 40 mg tablet 40 mg PO DAILY 07/02/23 02/07/24 History tamsulosin 0.4 mg capsule 0.4 mg PO DAILY 07/02/23 02/07/24 History omega-3 fatty acids 3,000 mg PO DAILY DAILY 08/27/23 02/07/24 History multivit,Ca,min-iron 8 mg-folic 1 tablet PO DAILY 02/07/24 02/07/24 History acid 200 mcg-lycopene 600 mcg tablet (Centrum Men) Allergies Allergy/AdvReac Type Severity Reaction Status Date / Time naproxen AdvReac Dizziness Verified 09/25/23 09:37 Vital Signs Vital Signs - 24 hr 02/07/24 22:00 02/07/24 20:00 02/08/24 06:00 Temperature 36.2 C L 36.1 C L Pulse Rate 70 58 L Respiratory Rate 15 15 Blood Pressure 125/47 L 120/65 Pulse Oximetry 93 93 Oxygen Delivery Room Air Exam Const: General: cooperative, comfortable and no acute distress HENMT: Head: normal to inspection, normocephalic and atraumatic Eyes: General: appearance normal, both eyes and all related structures Neck: Neck: normal visual inspection, full ROM and no lymphadenopathy Resp: Auscultation: clear to auscultation bilaterally Cardio: Ra
[2024-02-08 14:00] VITALS: BP 145/55; PULSE 60; RESP 15; TEMP 36.6; O2SAT 96
[2024-02-08 20:42] VITALS: TEMP 37.7
[2024-02-08] MEDS: ACETAMINOPHEN 325 MG TABLET 650 MG PO (20:42)
[2024-02-08 21:37] VITALS: BP 142/57; PULSE 67; RESP 15; TEMP 37.5; O2SAT 94
[2024-02-09] MEDS: metroNIDAZOLE 500 MG/ISO 100ML 500 MG/100 ML BAG 100 MG IVPB (04:50)
[2024-02-09] MEDS: SODIUM CHLORIDE 0.9% IV 1,000 ML 100 ML IV CONT (04:56)
[2024-02-09 06:00] VITALS: BP 131/51; PULSE 56; RESP 15; TEMP 37; O2SAT 95
--- NOTE | 2024-02-09 08:07 | PM.IMPN ---
Progress Note: A&P Assessment and Plan (1) Cholecystitis, acute: Code(s): K81.0 - Acute cholecystitis Status: Acute Assessment and Plan: Choledocholithiasis vs Cholecystitis - CT abd/pelvis (done at [place]): Findings suspicious for acute cholecystitis. - US of abdomen (done at [place]): Cholelithiasis and pericholecystic free fluid. No positive sonographic Blair sign. In conjunction with the findings on CT of the abdomen pelvis performed same date, acute cholecystitis should be considered in the appropriate clinical setting. - started on Zosyn at [facility], will continue as ceftriaxone plus metronidazole. - antiemetics and pain medication PRN - general surgery consulted - GI consulted - MRCP ordered - NPO at midnight in case of need for surgical management - continue IV fluids /- MRCP completed- normal bile duct size, no stone, + acute cholecystitis. Pain is resolved now, wonder if passed stone. Plan is interval cholecystectomy, iv abx. No need of ERCP at this time. surgery is following Plan Transfer from [facility] ER. Patient here with right-sided abdominal pain. Imaging consistent with acute cholecystitis. Ultrasound negative for Blair sign. General surgery and GI consulted. MRCP ordered. NPO at midnight in case of need for surgical management tomorrow. Antiemetics and pain medications p.r.n. started on Zosyn at [facility], will continue as ceftriaxone plus metronidazole. Patient overall feeling improved. Home medications reviewed and resumed as appropriate. Diet: Heart healthy, NPO at midnight GI Prophylaxis: not currently indicated DVT Prophylaxis: SCDs Lines: peripheral Code Status: full code Time Spent With Patient Time with patient: 25 - 35 minutes Subjective Date/time seen: 02/09/24 08:07 Interval history: 88 y/o M presents here with abdominal pain with PMH of HLD, chronic back pain, skin cancer (s/p excision), eczema, and prostate cancer (s/p radiation and eligard [id number]). The patient presents here from [facility] for abdominal pain. Reports onset of acute diffuse abdominal pain yesterday postprandial after a barbecue around 2 pm. He describes the pain as diffuse initially more so right sided later in course, nonradiating, constant, no aggravating factors, and alleviated by pain medication. Pain accompanied by nausea, fever (102F yesterday), lack of appetite, and loose stools. Has had 3 BMs in the last 24 hours - one normal in consistency and two that were loose. Denies blood or dark tarry stools. Denies associated vomiting, chills, body aches. Initially sought care at [facility] in [place]. There he was given Zosyn, pain medication, Protonix, and IV fluids. Transferred here to [facility] for General Surgery consultation and possible cholecystectomy. VS upon transfer to [facility]: ED workup showed: WBC 13.7, hemoglobin 13.4, sodium 134, glucose 117, creatinine 1.14 and GFR >60, ALT 428, AST 620, total bilirubin 5.4, and lipase 211. UA not consistent with UTI. TSH 1.4. CT of the abdomen/pelvis spacious for acute cholecystitis. Abdominal ultrasound showed cholelithiasis and kenney cholecystic free fluid, negative sonographic Blair sign. 02/07- GI consult was placed 02/06. MRCP is ordered.Pt is NPO this morning. Flagyl/ceftriaxone IV. MRCP planned to evaluate for presence of stone- If stone present, will need ERCP for removal. Pt is seen and examined- pleasant and calm- reports that pain is a lot better-no n/v/d. 02/08- MRCP completed- normal bile duct size, no stone, + acute cholecystitis. Pain is resolved now. ?interval cholecystectomy- surgery is following, will continue iv abx. No ERCP at this time. pt is seen at the bedside- comfortable, pleasant. Reports pain is under control- no n/v/d. Review of Systems Review of Systems: All systems reviewed & are unremarkable except as noted in HPI and below Exam Narrative: Const: General: comfortable and no acute distress Other: Ca
[2024-02-09] MEDS: TAMSULOSIN HCL 0.4 MG CAPSULE PO (08:55)
[2024-02-09 09:40] LABS: Hematocrit 39.8 % (42.0-52.0); Hemoglobin 12.2 g/dL (14.0-18.0); Mean Corpuscular HGB Conc 30.7 g/dl (32-36); Mean Corpuscular Hemoglobin 32.4 pg (26-34); Mean Corpuscular Volume 105.6 fl (80-100); Mean Platelet Volume 10.7 fl (7.4-10.4); Platelet Count Result 156 k/mm3 (150-375); Red Blood Count 3.77 M/mm3 (4.6-6.20); Red Cell Distribution Width 12.8 % (11.5-14.5); White Blood Count 7.6 K/mm3 (4.5-10.0)
[2024-02-09 09:58] LABS: Anion Gap 5 mmol/L (4-12); Blood Urea Nitrogen 19 mg/dL (9-20); Calcium 8.7 mg/dL (8.4-10.2); Carbon Dioxide 23 mmol/L (22-30); Chloride 111 mmol/L (98-107); Estimated CRCL calculation 59 ml/min; Estimated Glomerular Filt Rate > 60; Glucose 89 mg/dL (65-110); Potassium 3.9 mmol/L (3.4-5.0); Sodium 139 mmol/L (137-145)
[2024-02-09 10:38] LABS: Alanine Aminotransferase 178 U/L (6-50); Albumin Level 3.5 g/dL (3.5-5.1); Alkaline Phosphatase 207 U/L (38-126); Aspartate Amino Transferase 137 U/L (17-59); Bilirubin,Total 1.7 mg/dL (0.2-1.3); Lipase 87 U/L (23-300)
--- NOTE | 2024-02-09 10:56 | PM.PNGS ---
Progress Note: A&P Assessment and Plan (1) Cholecystitis, acute: Code(s): K81.0 - Acute cholecystitis Status: Acute Assessment and Plan: MRCP reviewed, exam benign, will recheck LFTs, start low fat diet, long d/w pt re: interval cholecystectomy, pt would like to be d/c'd home c f/u as outpt to schedule interval sandoval Subjective Subjective Date/Time Seen: 02/09/24 10:56 Interval history: feels good, elly clears, no further abd pain Review of Systems Review of Systems: All systems reviewed & are unremarkable except as noted in HPI and below Exam Const: General: cooperative, comfortable and no acute distress Resp: Auscultation: clear to auscultation bilaterally Cardio: Rate: regular rate Rhythm: regular rhythm GI: Inspection: normal to inspection and non-distended GI Palp: No abdominal tenderness, Yes Soft to palpation, No Tenderness to palpation present (GI), No Guarding due to palpation present (GI) and No Rigid due to palpation Objective Data Vital Signs Vital Signs: Vital Signs - 24 hr 02/08/24 14:00 02/08/24 20:42 02/08/24 21:37 Temperature 36.6 C 37.7 C H 37.5 C Pulse Rate 60 67 Respiratory Rate 15 15 Blood Pressure 145/55 H 142/57 H Pulse Oximetry 96 94 Oxygen Delivery 02/08/24 20:00 02/09/24 06:00 Temperature 37.0 C Pulse Rate 56 L Respiratory Rate 15 Blood Pressure 131/51 L Pulse Oximetry 95 Oxygen Delivery Room Air Intake/Output Intake/Output: Intake & Output 02/06/24 02/07/24 02/08/24 02/09/24 23:59 23:59 23:59 23:59 Intake Total 100 3225 900 Output Total 875 Balance 100 3225 25 Meds/Results Medications: Active Medications Generic Name Dose Route Start Last Admin Trade Name Freq PRN Reason Stop Dose Admin Acetaminophen 650 mg 02/07/24 21:13 02/08/24 20:42 Acetaminophen 325 Mg Tablet PO 650 mg Q4H PRN Administration Mild Pain (1-3) or Fever Hydrocodone Bitart/Acetaminophen 1 tab 02/07/24 21:13 Hydrocodone/Acetaminophen (*Crx) 5-325 Mg Tablet PO Q4H PRN Moderate Pain (4-6) Sodium Chloride 1,000 mls @ 100 mls/hr 02/07/24 21:15 02/09/24 04:56 Normal Saline Iv IV CONT 100 mls/hr .Q10H CARIE Administration Metronidazole 500 mg in 100 mls @ 100 mls/hr 02/07/24 22:20 02/09/24 04:50 Flagyl 500 Mg/Iso Soln 100 Ml IVPB 100 mls/hr Q8HR CARIE Administration Ceftriaxone Sodium 2 gm in 100 mls @ 200 mls/hr 02/07/24 23:00 02/08/24 22:43 Rocephin 2 Gm/Ns 100 Ml IVPB 200 mls/hr Q24H CARIE Administration Ondansetron HCl 4 mg 02/07/24 21:13 Ondansetron Inj 4 Mg/2 Ml Vial IV PUSH Q6H PRN Nausea And Vomiting Tamsulosin HCl 0.4 mg 02/08/24 09:00 02/09/24 08:55 Tamsulosin Hcl 0.4 Mg Capsule PO 0.4 mg DAILY CARIE Administration Radiology Results: ITS Impressions Chest X-Ray 02/08/24 06:22 Impression: Linear scarring or atelectasis right lung base. Possible minimal central congestive change. MRCP 02/08/24 13:31 IMPRESSION: 1. Acute cholecystitis. Labs Labs: Laboratory Results - last 24 hr 02/09/24 09:11 WBC 7.6 RBC 3.77 L Hgb 12.2 L Hct 39.8 L MCV 105.6 H D MCH 32.4 MCHC 30.7 L RDW 12.8 Plt Count 156 MPV 10.7 H Sodium 139 Potassium 3.9 Chloride 111 H Carbon Dioxide 23 Anion Gap 5 BUN 19 Creatinine 0.80 Estim Creat Clear Calc 59 Estimated GFR > 60 Glucose 89 Calcium 8.7 Total Bilirubin 1.7 H Direct Bilirubin 0.0 AST 137 H ALT 178 H Alkaline Phosphatase 207 H Total Protein 6.0 L Albumin 3.5 Lipase 87
--- NOTE | 2024-02-09 11:28 | WPDGIPROGNO ---
Progress Note: A&P Assessment and Plan (1) Cholecystitis, acute: Code(s): K81.0 - Acute cholecystitis Status: Acute Assessment and Plan: responding to medical treatment, pain almost gone liver enzymes coming down reviewed mrcp, no stone in bile duct- wonder if passed stone on abx interval cholecystectomy, timing per surgery ? outpatient will follow as needed (2) Elevated LFTs: Code(s): R79.89 - Other specified abnormal findings of blood chemistry Status: Acute Assessment and Plan: coming down no need of ercp right now (3) Upper abdominal pain: Code(s): R10.10 - Upper abdominal pain, unspecified Status: Acute (4) Nausea: Code(s): R11.0 - Nausea Status: Acute Subjective Date/time seen: 02/09/24 11:28 Interval history: pain almost gone, much better, tolerating diet Review of Systems Review of Systems: All systems reviewed & are unremarkable except as noted in HPI and below Exam Const: General: cooperative, comfortable and no acute distress HENMT: Face/Nose/Sinus: Normal nares present Eyes: Sclera: sclerae normal Neck: Neck: supple Resp: Auscultation: clear to auscultation bilaterally Cardio: Rate: regular rate Rhythm: regular rhythm GI: Inspection: normal to inspection and non-distended GI Palp: No abdominal tenderness, Yes Soft to palpation, No Tenderness to palpation present (GI), No Guarding due to palpation present (GI) and No Rigid due to palpation Skin: General skin exam: normal color Neuro: Speech: normal speech Motor exam (neuro): 5/5 motor strength present throughout Extrem: General: normal to inspection Psych: Mental Status: mental status grossly normal Objective Data Vital Signs Vital Signs: Vital Signs - 24 hr 02/08/24 14:00 02/08/24 20:42 02/08/24 21:37 Temperature 98 F 99.8 F H 99.5 F Pulse Rate 60 67 Respiratory Rate 15 15 Blood Pressure 145/55 H 142/57 H Pulse Oximetry 96 94 Oxygen Delivery 02/08/24 20:00 02/09/24 06:00 Temperature 98.6 F Pulse Rate 56 L Respiratory Rate 15 Blood Pressure 131/51 L Pulse Oximetry 95 Oxygen Delivery Room Air Intake/Output Intake/Output: Intake & Output 02/06/24 02/07/24 02/08/24 02/09/24 23:59 23:59 23:59 23:59 Intake Total 100 3225 900 Output Total 875 Balance 100 3225 25 Meds/Results Medications: Active Medications Generic Name Dose Route Start Last Admin Trade Name Freq PRN Reason Stop Dose Admin Acetaminophen 650 mg 02/07/24 21:13 02/08/24 20:42 Acetaminophen 325 Mg Tablet PO 650 mg Q4H PRN Administration Mild Pain (1-3) or Fever Hydrocodone Bitart/Acetaminophen 1 tab 02/07/24 21:13 Hydrocodone/Acetaminophen (*Crx) 5-325 Mg Tablet PO Q4H PRN Moderate Pain (4-6) Sodium Chloride 1,000 mls @ 100 mls/hr 02/07/24 21:15 02/09/24 04:56 Normal Saline Iv IV CONT 100 mls/hr .Q10H CARIE Administration Metronidazole 500 mg in 100 mls @ 100 mls/hr 02/07/24 22:20 02/09/24 04:50 Flagyl 500 Mg/Iso Soln 100 Ml IVPB 100 mls/hr Q8HR CARIE Administration Ceftriaxone Sodium 2 gm in 100 mls @ 200 mls/hr 02/07/24 23:00 02/08/24 22:43 Rocephin 2 Gm/Ns 100 Ml IVPB 200 mls/hr Q24H CARIE Administration Ondansetron HCl 4 mg 02/07/24 21:13 Ondansetron Inj 4 Mg/2 Ml Vial IV PUSH Q6H PRN Nausea And Vomiting Tamsulosin HCl 0.4 mg 02/08/24 09:00 02/09/24 08:55 Tamsulosin Hcl 0.4 Mg Capsule PO 0.4 mg DAILY CARIE Administration Radiology Results: ITS Impressions Chest X-Ray 02/08/24 06:22 Impression: Linear scarring or atelectasis right lung base. Possible minimal central congestive change. MRCP 02/08/24 13:31 IMPRESSION: 1. Acute cholecystitis. Labs Labs: Laboratory Results - last 24 hr 02/09/24 09:11 WBC 7.6 RBC 3.77 L Hgb 12.2 L Hct 39.8 L MCV 105.6 H D MCH 32.4 MCHC 30.7 L RDW 12.8 Plt Count 156 MPV
--- NOTE | 2024-02-09 13:39 | PM.DS ---
DS: Admitting Diagnosis Discharge Date 02/08 Admitting Diagnosis abd pain DS: Discharge Diagnosis Discharge Diagnosis (1) Cholecystitis, acute: Code(s): K81.0 - Acute cholecystitis Status: Acute Assessment and Plan: Choledocholithiasis vs Cholecystitis - CT abd/pelvis (done at [facility]): Findings suspicious for acute cholecystitis. - US of abdomen (done at [facility]): Cholelithiasis and pericholecystic free fluid. No positive sonographic Blair sign. In conjunction with the findings on CT of the abdomen pelvis performed same date, acute cholecystitis should be considered in the appropriate clinical setting. - started on Zosyn at [facility], will continue as ceftriaxone plus metronidazole. - antiemetics and pain medication PRN - general surgery consulted - GI consulted - MRCP ordered - NPO at midnight in case of need for surgical management - continue IV fluids 02/08- MRCP completed- normal bile duct size, no stone, + acute cholecystitis. Pain is resolved now, wonder if passed stone. Plan is interval cholecystectomy, iv abx. No need of ERCP at this time. surgery is following Plan final dxL acute cholecystitis Transfer from [facility] ER. Patient here with right-sided abdominal pain. Imaging consistent with acute cholecystitis. Ultrasound negative for Blair sign. General surgery and GI consulted. MRCP ordered. NPO at midnight in case of need for surgical management tomorrow. Antiemetics and pain medications p.r.n. started on Zosyn at [facility], will continue as ceftriaxone plus metronidazole. Patient overall feeling improved. Home medications reviewed and resumed as appropriate. Diet: Heart healthy, NPO at midnight GI Prophylaxis: not currently indicated DVT Prophylaxis: SCDs Lines: peripheral Code Status: full code DS: Summary Hospital Course Hospital Course: 88 y/o M presents here with abdominal pain with PMH of HLD, chronic back pain, skin cancer (s/p excision), eczema, and prostate cancer (s/p radiation and eligard [id number]). The patient presents here from [facility] for abdominal pain. Reports onset of acute diffuse abdominal pain yesterday postprandial after a barbecue around 2 pm. He describes the pain as diffuse initially more so right sided later in course, nonradiating, constant, no aggravating factors, and alleviated by pain medication. Pain accompanied by nausea, fever (102F yesterday), lack of appetite, and loose stools. Has had 3 BMs in the last 24 hours - one normal in consistency and two that were loose. Denies blood or dark tarry stools. Denies associated vomiting, chills, body aches. Initially sought care at [facility] in [place]. There he was given Zosyn, pain medication, Protonix, and IV fluids. Transferred here to [facility] for General Surgery consultation and possible cholecystectomy. VS upon transfer to [place]: ED workup showed: WBC 13.7, hemoglobin 13.4, sodium 134, glucose 117, creatinine 1.14 and GFR >60, ALT 428, AST 620, total bilirubin 5.4, and lipase 211. UA not consistent with UTI. TSH 1.4. CT of the abdomen/pelvis spacious for acute cholecystitis. Abdominal ultrasound showed cholelithiasis and kenney cholecystic free fluid, negative sonographic Blair sign. 02/07- GI consult was placed 02/06. MRCP is ordered.Pt is NPO this morning. Flagyl/ceftriaxone IV. MRCP planned to evaluate for presence of stone- If stone present, will need ERCP for removal. Pt is seen and examined- pleasant and calm- reports that pain is a lot better-no n/v/d. 02/08- pain is gone. pt denies n/v/d. OK to advance diet per surgery and d/c home today with an outpt f/u to schedule interval sandoval Status at Discharge Functional status at discharge: independent ambulation Overall status at discharge: patient is back to baseline Time Spent with Patient Time attestation: Total time spent providing and/or coordinating discharge services: Time spent: Less than 30 minutes Exam Narrative: Const: General: com
[2024-02-09 14:00] VITALS: BP 126/49; PULSE 77; RESP 16; TEMP 36; O2SAT 96
== END 2024-02-09 18:19 | disposition home or self-care (01) ==
PROVIDERS: Nurse Practitioner; Student in an Organized Health Care Education/Training Program; Surgery; Admitting Provider Family Medicine; PCP Internal Medicine; Visit Provider Family Medicine
DX: K81.0 Acute cholecystitis (principal); R79.89 Other specified abnormal findings of blood chemistry; R74.8 Abnormal levels of other serum enzymes; E78.5 Hyperlipidemia, unspecified; Z85.46 Personal history of malignant neoplasm of prostate; Z92.3 Personal history of irradiation
CPT/HCPCS: 36415; 71046; 74183; 76376; 80048; 80053; 80076; 83690; 85025; 85027; 93005; 96361; 96365; 96366; 96367; 96376; A9270; A9577; G0378; G0379; J0696; J1836; J7030

== ENCOUNTER 2024-02-20 08:23 | Outpatient (CLI) | payer MEDICARE, SELFPAY ==
[2024-02-20 08:57] LABS: Amylase 121 U/L (30-110)
[2024-02-20 10:44] LABS: Alanine Aminotransferase 62 U/L (6-50); Albumin Level 4.2 g/dL (3.5-5.1); Alkaline Phosphatase 140 U/L (38-126); Aspartate Amino Transferase 70 U/L (17-59); Lipase 346 U/L (23-300)
== END 2024-02-20 08:24 | disposition home or self-care (01) ==
LOC: ANHSURGERY 08:26
PROVIDERS: PCP Internal Medicine; Visit Provider Surgery
DX: K85.10 Biliary acute pancreatitis without necrosis or infection (principal); K81.0 Acute cholecystitis
CPT/HCPCS: 36415; 80076; 82150; 83690

== ENCOUNTER 2024-02-21 01:36 | Day surgery (SDC) | payer MEDICARE, SELFPAY ==
--- NOTE | 2024-02-19 12:55 | PC.NURSE ---
Report to the Outpatient Waiting Room, entrance under the green pavilion located off [facility], at time _8:30 AM on date _02/21/24 . Planned Procedure Time: _10:30 AM . Time changes happen often and if your time is changed the preop area will call you the afternoon before. - You and your visitor will be asked to self-screen and do not enter if you have any COVID symptoms. - A mask is optional within the hospital at this time. Patients may have clear liquids (water, carbonated beverages, clear teas, apple juice) until 3 hours prior to surgery( 7:30AM) with a maximum of 20 ounces. - No food from midnight until time of surgery - Infants may have breast milk until 4 hours before surgery, infant formula 6 hours prior to surgery. - Children will be allowed to drink immediately following surgery. If applicable, please bring a bottle or sippy cup to assist with drinking. Juice, water, soda, and popsicles are readily available. For infants on formula, please bring formula the day of surgery. Pacifiers are allowed. Take the following medications with a SIP of water the morning of surgery: __CEPHALEXIN DO NOT STOP ANY OF YOUR OTHER PRESCRIPTION MEDICATIONS PRIOR TO SURGERY ?EXCEPT THE FOLLOWING Medications to discontinue per physician ____HOLD ALL VITAMINS AND SUPPLEMENTS 3 DAYS PRE OP .LAST DOSE 02/18/24 Please no make-up, nail greek, hairspray, perfume, deodorant, or body powder the day of surgery. No jewelry (including any body piercings) or valuables the day of surgery, leave them at home. Please take a shower or bath the night before, or the morning of, surgery with an antibacterial soap. Wear comfortable, loose fitting clothing. Children are encouraged to wear pajamas. - Jewelry must be removed prior to entering the operating room. Rings and piercings that are not removed may be cut off. - The hospital will not accept responsibility for valuables. - Please leave all valuables, including medications, at home the day of surgery. If you are going home after surgery, a licensed driver helper must drive you home. - NO public transportation without another adult if you receive anesthesia. - We recommend that an adult stay with you for 24 hours following discharge. - We also recommend that you do not drive, make important decision, drink alcoholic beverages, or take any drugs that were not prescribed by your health care provider for at least 24 hours after your discharge time.. Follow any additional instructions given to you from your surgeon. If you or anyone in your household have experienced Covid symptoms in the past week, please notify your surgeon or the nurse liaison at the phone number below for possible testing. Telephone instructions given to __PATIENT and asked if any additional questions and then verbalized understanding. Patient advised to call surgeon office or pre surgery nurse liaison [phone] if any additional questions.
[2024-02-19 13:04] VITALS: BMI 29.0
[2024-02-21] VITALS (11 sets, daily range): BP systolic 99–129; BP diastolic 44–62; PULSE 69–80; RESP 12–20; TEMP 36.1; O2SAT 92–100
--- NOTE | 2024-02-21 07:26 | WPDHPUPDATE1 ---
History and Physical Update Update Date/Time: 02/21/24 07:26 History and Physical has been reviewed, including an updated exam of the patient. There are NO changes in the patient's condition. Risks, benefits, and alternatives have been discussed and questions answered. Patient agrees to proceed with procedure.
[2024-02-21] MEDS: ACETAMINOPHEN 500 MG TABLET 1000 MG PO (09:29)
[2024-02-21] MEDS: LACTATED RINGERS 1,000 ML 30 ML IV CONT (09:35)
[2024-02-21] MEDS: KETOROLAC 15 MG/ML VIAL (*BKC) IV PUSH (09:37)
--- NOTE | 2024-02-21 09:37 | WPDANESEPPF ---
Anes - Initial Pre Proc Eval Procedure: Operation Date: 02/21/24 10:30 Proposed Procedures p Laparoscopic Cholecystectomy - Susan Bender MD Date/Time: 02/21/24 09:37 Surgeon: Susan Bender MD Pre Op Diagnosis: acute biliary pancreatitis Patient Data Age: 88 Gender: M Height: 1.73 m Weight: 86.65 kg Allergies Allergy/AdvReac Type Severity Reaction Status Date / Time naproxen AdvReac Dizziness Verified 02/21/24 08:51 Home Medications Medication Instructions Recorded Confirmed Type simvastatin 40 mg tablet 40 mg PO DAILY 07/02/23 02/21/24 History tamsulosin 0.4 mg capsule 0.4 mg PO DAILY 07/02/23 02/21/24 History omega-3 fatty acids 3,000 mg PO QPM 08/27/23 02/21/24 History multivit,Ca,min-iron 8 mg-folic 1 tablet PO QPM 02/07/24 02/21/24 History acid 200 mcg-lycopene 600 mcg tablet (Centrum Men) cephalexin 250 mg capsule 1 mg PO DAILY FREQ UTI'S 02/19/24 02/21/24 History Patient hx anesthesia problems: none Family hx anesthesia problems: none Results Review: All pre-operative results and documents have been reviewed as part of the pre-operative evaluation. 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 Upper abdominal pain Surgical History Surgical History History of appendectomy History of bilateral cataract extraction History of carpal tunnel surgery of left wrist 09/10/23 History of carpal tunnel surgery of right wrist 07/31/23 History of left inguinal hernia repair Family History Family History Father Diabetes mellitus Heart disease Social History Social History Smoking status: Never smoker Second hand tobacco smoke exposure: No Alcohol intake: never Substance use: never Substance use type: does not use Do You Feel Safe in your Home?: Yes Lack of Transportation: No Lack of Food: Never True Current Housing: I Have Housing Concerned About Future Housing: No Difficulty Paying Gas/Electric Bills: No Difficulty Paying for Meds: No Currently Unemployed: No Education: High School Diploma/GED Difficulty w/ Childcare or Family Care: No Living arrangements: with family Occupation/Education: retired Spiritual care concerns: No Anes - Eval Final PreProcedure Day of Procedure 02/21/24 09:37 Patient weight: obese Heart: regular rate and rhythm Lungs: clear to auscultation Airway: Mallampati scale class III Neurological: alert and oriented Last oral intake: >/= 8 hours ASA classification: III Emergent: no Anesthetic plan: proceed Anesthesia type and monitoring: general ETT and standard monitoring Results Review: All pre-operative results and documents have been reviewed as part of the pre-operative evaluation. Informed Consent: The patient's anesthetic plan and its attendant risks and benefits were discussed with the patient/family/POA. Questions were solicited and answers provided to the satisfaction of the patient/family/POA.
[2024-02-21] MEDS: ceFAZolin 2 GM/D5W 50 ML 2 GM/50 ML BAG IVPB (09:50)
[2024-02-21] MEDS: BUPIVACAINE/EPINEPHRINE 0.5% 10 ML VIAL 30 ML INFILTRATE (10:12)
--- NOTE | 2024-02-21 10:51 | W.PM.PROC2 ---
Procedure Note - Detailed Date of Procedure 02/21/24 Pre-op Diagnosis acute biliary pancreatitis Post-op Diagnosis Same Procedure Performed Laparoscopic cholecystectomy Surgeon Susan Bender MD Anesthesia General Indications 88-year-old male initially presented with acute biliary pancreatitis. The patient has had resolution of the acute pancreatitis and is now set up for interval cholecystectomy. Findings Cholecystitis Description of Procedure The patient was taken to the operating room placed in the supine position. After adequate induction of general anesthesia, the patient was prepped and draped in normal sterile fashion. A time-out was then performed to verify the patient's identity as well as the procedure being performed. I then made a 5 mm incision in the infraumbilical region. Through this, a Veress needle was placed into the peritoneal cavity and CO2 gas was then insufflated. After adequate pneumoperitoneum was achieved, the Veress needle was removed and a 5 mm optiview trocar was placed through this incision under direct visualization. I then placed the laparoscope through this trocar site and under direct visualization placed a further 12 mm subxiphoid port as well as 2 additional 5 mm ports in the right upper abdomen. The gallbladder was then identified and was noted to be inflamed and distended. There was a dense amount of omental adhesions to the gallbladder and this was taken down with the Bovie cautery. I was able to place a grasper at the dome of the gallbladder and this was retracted anterior and cephalad up over the liver. A 2nd retractor was then placed at the infundibulum and retracted laterally, this allowed visualization of the triangle of Calot. I then was able to visualize the cystic duct in its entirety from its proximal insertion into the gallbladder, to its distal junction with the common hepatic/common bile duct junction. At this point, I carefully skeletonized the proximal cystic duct with the [place] dissector. I then clipped and transected the proximal cystic duct. Next I visualized the cystic artery. Again the artery was skeletonized, clipped, and transected. I then used the Bovie cautery to take down the peritoneal attachments of the gallbladder off the liver bed. This was somewhat difficult given the amount of inflammation in the posterior space. Once the gallbladder specimen was completely detached, an endo-pouch was placed through the 12 mm port site. I then placed the gallbladder specimen into the Endo pouch and removed the endo-pouch from the 12 mm port site. The specimen will now be sent to pathology for further review. I then copiously irrigated the right upper quadrant. Some mild oozing was noted in the liver bed and this was controlled with the bovie cautery. Hemostasis was noted in the liver bed, the clips were noted to be in good position on both the cystic duct stump and the cystic artery stump. No other pathology was noted in the right upper quadrant. I then moved the laparoscope to the subxiphoid port. No iatrogenic injury or other pathology was noted in the lower abdomen. I then closed the 12 mm trocar site under direct visualization using the Zhen cone and 0 Vicryl suture. At this point, the abdomen was desufflated and all ports removed. All port sites were then closed with 4.O Monocryl subcuticular sutures. Dermabond was placed on each incision. The patient tolerated the procedure well, was extubated in the operating room postoperative and will be transferred to the recovery room in stable condition Estimated Blood Loss 10 Drains No Packing No Pathology Yes Complications No immediate complications Condition Stable Disposition PACU [facility] Billing Surgery - Charge Forward: Surgery Billing
== END 2024-02-21 13:15 | disposition home or self-care (01) ==
PROVIDERS: PCP Internal Medicine; Visit Provider Surgery
PROC: 0FT44ZZ Resection of Gallbladder, Percutaneous Endoscopic Approach (ICD-10-PCS; CPT 47562; principal; 2024-02-21 10:30)
DX: K85.10 Biliary acute pancreatitis without necrosis or infection (principal); K81.0 Acute cholecystitis; E78.5 Hyperlipidemia, unspecified; Z85.46 Personal history of malignant neoplasm of prostate
CPT/HCPCS: 47562; 88304; A9270; J0690; J1100; J1885; J2371; J2405; J2704; J3010; J7030; J7120

== ENCOUNTER 2025-03-24 01:38 | Emergency (ER) | payer MEDICARE, SELFPAY ==
--- OUTSIDE RECORDS SUMMARY | 2025-03-24 01:39 | XMS_ITS | Continuity of Care Document ---
Author Organization [facility] Address [address] [facility] [address] [place] [address] Phone Care Team Providers Care Laboratory Tech Name Role Phone Gary Acevedo Unavailable Unavailable Procedures Procedure Date Eye Exam & Treatment Refraction Eye Exam & Treatment Refraction Eye Exam & Treatment Eye Exam & Treatment Advance Directives Directive Yes / No Effective Date File Name No Information Encounters Encounter Description Practice Location Reason(s) For Visit Diagnoses Date Provider Providers Copied on Encounter [facility], [address] [place] [address] [address], [place], [place], [id number], tel:[phone] [facility] No Information [address] , [address], [place], [place], [facility], . tel:[phone] [facility], [address] [place] [address] [address], [place], [place], [id number], [place] tel:[phone] [facility] No Information [address], [address], [place], [place], [facility], [place]. tel:[phone] [facility], [address] [place] [address] [address], [place], [place], [id number], [place] tel:[phone] [facility] No Information [address] , [address], [place], [address], [place]. tel:[phone] [facility], [address], [place], [place], [id number], [place] tel:[phone] [facility] No Information [address] [facility] , [address], [place], [address], [place]. tel:[phone] Family History Family Member Type Diagnosis Age At Onset No Information Payers Payer name Insurance type Covered green party ID Authorpashaa tiagosonia(s) [employer] Vision Plan 09 [id number] Social History Type Description Quantity Date Captured Comments Sex Male Smoking Status No Information Chief Complaint And Reason For Visit No Information Reason For Referral Reason For Referral No Information History Of Present Illness Encounter Date Complaint History Of Prese nt Illness No Information Functional Status Date Functional Assessmen t No Information Instructions Date Instruction Additional Infor mation No Information Assessments Type Assessment Date No Information Patient Care Teams Name Effective Dates (start - stop) Status Members No Information
[2025-03-24 01:46] VITALS: BP 167/65; PULSE 63; RESP 17; TEMP 36.6; O2SAT 97
--- OUTSIDE RECORDS SUMMARY | 2025-03-24 02:20 | XMS_ITS | Continuity of Care Document ---
Author Organization [facility] Address [address] [facility] [address] [place] [address] Phone Care Team Providers Care Savings Counselor Name Role Phone Gary Acevedo Unavailable Unavailable Procedures Procedure Date Eye Exam & Treatment Refraction Eye Exam & Treatment Refraction Eye Exam & Treatment Eye Exam & Treatment Advance Directives Directive Yes / No Effective Date File Name No Information Encounters Encounter Description Practice Location Reason(s) For Visit Diagnoses Date Provider Providers Copied on Encounter [facility], [address] [place] [address] [address], [place], [place], [id number], tel:[phone] [facility] No Information [address] [facility] , [address], [place], [place], [facility], . tel:[phone] [facility], [address] [place] [address] [address], [place], [place], [id number], [place] tel:[phone] [facility] No Information [address] [facility], [address], [place], [place], [facility], [place]. tel:[phone] [facility], [address] [place] [address] [address], [place], [place], [id number], [place] tel:[phone] [facility] No Information [address] [facility] [address] , [address], [place], [address], [place]. tel:[phone] [facility], [address], [place], [place], [id number], [place] tel:[phone] [facility] No Information [address] [facility] , [address], [place], [address], [place]. tel:[phone] Family History Family Member Type Diagnosis Age At Onset No Information Payers Payer name Insurance type Covered constitution party ID Authorpashaa tiagosonia(s) [employer] Vision Plan 09 [id number] Social History Type Description Quantity Date Captured [...]
[2025-03-24 02:21] VITALS: BP 126/63; PULSE 61; RESP 16; O2SAT 96
--- NOTE | 2025-03-24 02:29 | ED.EAR ---
HPI - Ear Problem General Chief complaint: Ear Stated complaint: R ear pain Time Seen by Provider: 03/24/25 01:48 Source: patient Mode of arrival: ambulatory Limitations: no limitations History of Present Illness HPI Narrative: Patient is an 89-year-old male, with PMH of prostate CA, who presents the ED with report of right ear popping sensation. Patient reports having a persistent popping sensation in his right ear since 11 pm tonight. States it is uncomfortable and annoying, denies significant pain. Denies changes in hearing. Denies significant headache, dizziness, lightheadedness, slurred speech, confusion. Denies drainage from ear. Denies left ear symptoms. Related Data Home Medications ?Medication ?Instructions ?Recorded ?Confirmed ?Last Taken ?Type simvastatin 40 mg tablet 40 mg PO DAILY 07/02/23 03/11/24 02/20/24 History tamsulosin 0.4 mg capsule 0.4 mg PO DAILY 07/02/23 03/11/24 02/20/24 History omega-3 fatty acids 3,000 mg PO QPM 08/27/23 03/11/24 02/18/24 History multivit,Ca,min-iron 8 mg-folic 1 tablet PO QPM 02/07/24 03/11/24 02/18/24 History acid 200 mcg-lycopene 600 mcg tablet (Centrum Men) Allergies Allergy/AdvReac Type Severity Reaction Status Date / Time naproxen AdvReac Dizziness Verified 03/24/25 02:23 Review of Systems Review of Systems: All systems reviewed & are unremarkable except as noted in HPI. 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 Eczema Chronic back pain Arthritis Carpal tunnel syndrome on both sides Hyperlipidemia Prostate cancer s/p radiation and [id number] Eligard Surgical History Surgical History Hx laparoscopic cholecystectomy 02/21/24 History of bilateral cataract extraction History of left inguinal hernia repair History of carpal tunnel surgery of left wrist 09/10/23 History of carpal tunnel surgery of right wrist 07/31/23 History of appendectomy Family History Family History Father Diabetes mellitus Heart disease Social History Social History Smoking status: Never smoker Second hand tobacco smoke exposure: No Alcohol intake: never Substance use: never Substance use type: does not use Do You Feel Safe in your Home?: Yes Lack of Transportation: No Lack of Food: Never True Current Housing: I Have Housing Concerned About Future Housing: No Difficulty Paying Gas/Electric Bills: No Difficulty Paying for Meds: No Currently Unemployed: No Education: High School Diploma/GED Difficulty w/ Childcare or Family Care: No Living arrangements: with family Occupation/Education: retired Spiritual care concerns: No Exam Narrative: GENERAL: Elderly but well appearing, well-nourished, non-toxic, in no acute distress. HEAD: Normocephalic, atraumatic. ENT: L TM clear. L EAC normal. R EAC normal w/o erythema/swelling. R TM w/ slight erythema and fluid levels seen behind TM. No significant bulging of TM. No drainage. No tenderness/redness/swelling over mastoid region. RESPIRATORY: Airway patent, respirations nonlabored. CARDIOVASCULAR: Regular rate and rhythm MUSCULOSKELETAL: Moves all extremities. No gross deformities. SKIN: Warm, dry, normal color. NEURO: A&O X3. Speech clear. Cranial nerves II-XII grossly intact. Steady gait. No ataxic movements. No focal deficits. PSYCHIATRIC: Appropriate mood and affect. Normal interaction. Course Vital Signs Vital signs: Vital Signs Temperature 97.8 F 03/24/25 01:46 Pulse Rate 63 03/24/25 01:46 Respiratory Rate 17 03/24/25 01:46 Blood Pressure 167/65 H 03/24/25 01:46 Pulse Oximetry 97 03/24/25 01:46 Temperature 97.8 F 03/24/25 01:46 Pulse Rate 61 03/24/25 02:21 Respiratory Rate 16 03/24/25 02:21 Blood Pressure 126/63 03/24/25 02:21 Pulse Oximetry 96 03/24/25 02:21 Oxygen Delivery Room Air 03/24/25 02:21 Medical Decision Making [facility] Narrative Medical decision making narrative: Patient presented to ED with several hour onset of right ear popping. Exam consistent with likely right otitis media with effusion. Will treat for such. Will cover with Augmentin. Discussed Afrin/intranasal decongestants for additional symptom relief. Discussed additional eustachian tube dysfunction techniques, including chewing gum. No evidence of mastoiditis on exam. Patient is otherwise neurologically intact. Low suspicion for neurologic etiology. I did offer brain scan to patient patient politely declined. Patient will be referred to ENT. Advised to follow-up with PCP as well. Given strict return precautions. He is in agreement with plan. Discharged in stable condition. Medical Records Medical records reviewed: Yes I reviewed the external patient's medical records. Vital Signs Vital Signs: Vital Signs Temperature 97.8 F 03/24/25 01:46 Pulse Rate 63 03/24/25 01:46 Respiratory Rate 17 03/24/25 01:46 Blood Pressure 167/65 H 03/24/25 01:46 Pulse Oximetry 97 03/24/25 01:46 Temperature 97.8 F 03/24/25 01:46 Pulse Rate 61 03/24/25 02:21 Respiratory Rate 16 03/24/25 02:21 Blood Pressure 126/63 03/24/25 02:21 Pulse Oximetry 96 03/24/25 02:21 Oxygen Delivery Room Air 03/24/25 02:21 Discharge Plan Discharge Clinical Impression: Acute otitis media with effusion of right ear, Eustachian tube dysfunction Patient Disposition: Home Condition: Stable Instructions: Antibiotic Form, Ear Infection (ED), Barotrauma (ED), Earache (ED) Additional Instructions: Take antibiotics as prescribed. Stay well hydrated. You may use Afrin nasal spray up to twice daily as needed over the next 3 days for decongestant effect. Recommend Tylenol as needed. Follow-up with primary care doctor and/or ENT for further evaluation. Return for new or worsening concerns. Patient Language: Wolof Prescriptions: New oxymetazoline [Afrin (oxymetazoline)] 0.05 % spray,non-aerosol 2 spray intranasal Q12H PRN (Reason: nasal congestion) 3 Days Qty: 15 0RF amoxicillin-pot clavulanate 875-125 mg tablet 1 tablet PO Q12H 7 Days Qty: 14 0RF No Action tamsulosin 0.4 mg capsule 0.4 mg PO DAILY simvastatin 40 mg tablet 40 mg PO DAILY Centrum Men 8 mg iron- 200 mcg-600 mcg Tablet 1 tablet PO QPM omega-3 fatty acids Capsule 3,000 mg PO QPM Follow-up/Referrals: Jeffery,MD Florencio [Primary Care Provider] - Haja Rivera MD [Physician] - (ENT) Time of Disposition: 02:40
[2025-03-24] MEDS: OXYMETAZOLINE HCL 0.05% NAS 15 ML BTL (*BKC) 1 SPRAY NASAL (02:39)
[2025-03-24 02:52] VITALS: BP 129/56; PULSE 57; RESP 16; TEMP 36.5; O2SAT 97
== END 2025-03-24 02:53 | disposition home or self-care (01) ==
PROVIDERS: Emergency Provider Physician Assistant; PCP Internal Medicine
DX: H65.191 Other acute nonsuppurative otitis media, right ear (principal); Z96.29 Presence of other otological and audiological implants; M19.90 Unspecified osteoarthritis, unspecified site; Z85.46 Personal history of malignant neoplasm of prostate; Z85.828 Personal history of other malignant neoplasm of skin
CPT/HCPCS: 99283; A9270